=== PATIENT | male | born 1940 | race Caucasian/White ===

== ENCOUNTER → 2018-12-22 14:54 | Outpatient (CLI) | payer OTHER, SELFPAY ==
[2018-12-22 17:39] LABS: BUN Creatinine Ratio 20.8 (6-22); Blood Urea Nitrogen 27 mg/dL (9-20); Calcium 9.3 mg/dL (8.4-10.2); Carbon Dioxide 27 mmol/L (22-32); Chloride 103 mmol/L (98-107); Estimated Glomerular Filt Rate 53.5 mL/min (>60); Glucose 80 mg/dL (80-110); HEMOLYSIS < 15 (0-50); Potassium 4.9 mmol/L (3.4-5.1); Sodium 140 mmol/L (137-145)
[2018-12-22 17:51] LABS: Vitamin D 25 Hydroxy (D3) 45.6 ng/mL (30.0-100.0)
== END ==
PROVIDERS: PCP Student in an Organized Health Care Education/Training Program; Visit Provider Student in an Organized Health Care Education/Training Program
DX: E55.9 Vitamin D deficiency, unspecified (principal); N18.3 Chronic kidney disease, stage 3 (moderate)
CPT/HCPCS: 36415; 80048; 82306

== ENCOUNTER → 2020-01-21 09:08 | Outpatient (CLI) | payer OTHER, SELFPAY ==
--- NOTE | 2020-01-21 09:09 | DI.US.S_ITS ---
PROCEDURE: US PERIPH VENOUS LOW EXTREM RT INDICATIONS: UNILATERAL EDEMA TECHNIQUE: Real-time imaging, as well as color and pulse Doppler interrogation, were performed of the lower extremity deep veins from the inguinal ligament to the popliteal fossa. COMPARISON: None. FINDINGS: There is expansile clot present with minimal flow extending from the right popliteal vein through most of the superficial femoral vein (deep vein of the thigh). The common femoral vein is patent. IMPRESSION: Long segment acute right lower extremity DVT involving the popliteal vein and most of the superficial femoral vein. Dictated by: Federico Pitt M.D. on 01/21/2020 at 10:16 Approved by: Federico Pitt M.D. on 01/21/2020 at 10:21
== END ==
PROVIDERS: PCP Student in an Organized Health Care Education/Training Program; Referring Provider Student in an Organized Health Care Education/Training Program; Visit Provider Student in an Organized Health Care Education/Training Program
DX: I82.431 Acute embolism and thrombosis of right popliteal vein (principal); I82.811 Embolism and thrombosis of superficial veins of right lower extremity; R60.0 Localized edema
CPT/HCPCS: 93971

== ENCOUNTER → 2020-01-22 12:17 | Outpatient (CLI) | payer OTHER, SELFPAY ==
[2020-01-22 13:27] LABS: Alanine Aminotransferase 24 IU/L (<50); Albumin 4.2 g/dL (3.5-5.0); Albumin Globulin Ratio 1.4 (1.0-2.8); Alkaline Phosphatase 80 U/L (38-126); Aspartate Aminotransferase 25 IU/L (17-59); BUN Creatinine Ratio 17.2 (6-22); Bilirubin Total 0.4 mg/dL (0.2-1.3); Blood Urea Nitrogen 23 mg/dL (9-20); Calcium 9.4 mg/dL (8.4-10.2); Carbon Dioxide 27 mmol/L (22-32); Chloride 105 mmol/L (98-107); Estimated Glomerular Filt Rate 51.6 mL/min (>60); Globulin 3.1 g/dL (1.7-4.1); Glucose 106 mg/dL (80-110); HEMOLYSIS < 15 (0-50); Potassium 4.8 mmol/L (3.4-5.1); Sodium 139 mmol/L (137-145); Total Protein 7.3 g/dL (6.3-8.2)
== END ==
PROVIDERS: PCP Student in an Organized Health Care Education/Training Program; Referring Provider Internal Medicine; Visit Provider Internal Medicine
DX: I82.409 Acute embolism and thrombosis of unspecified deep veins of unspecified lower extremity (principal); N18.2 Chronic kidney disease, stage 2 (mild)
CPT/HCPCS: 36415; 80053

== ENCOUNTER → 2020-03-09 10:57 | Outpatient (CLI) | payer OTHER, SELFPAY ==
--- NOTE | 2020-03-09 11:02 | DI.RAD.S_ITS ---
PROCEDURE: XR RIBS LT MIN 3V W CXR1V INDICATIONS: s/p fall/trauma TECHNIQUE: 2 views of the left ribs were acquired, along with a single view chest. COMPARISON: None. FINDINGS: Surgical changes and devices: None. Bones and chest wall: A left posterolateral 11th rib fracture can be seen on one of the 3 views clearly. It is by 8 mm at the fracture margin. No suspicious bony lesions. Overlying soft tissues appear unremarkable. Lungs and pleura: No pleural effusions or pneumothorax. Lungs appear clear. Mediastinum: Mediastinal contours appear normal. Heart size is normal. IMPRESSION: A fracture is noted at what appears to be the 11th rib posterior laterally on the left, seen on one of the 3 views to be at the fracture plane by approximately 8 mm. No pneumothorax on the left. Dictated by: Guicho Torres M.D. on 03/09/2020 at 11:33 Approved by: Guicho Torres M.D. on 03/09/2020 at 11:38
== END ==
PROVIDERS: PCP Student in an Organized Health Care Education/Training Program; Referring Provider Nurse Practitioner; Visit Provider Nurse Practitioner
DX: R07.81 Pleurodynia (principal); S22.32XA Fracture of one rib, left side, initial encounter for closed fracture; I82.409 Acute embolism and thrombosis of unspecified deep veins of unspecified lower extremity; I87.2 Venous insufficiency (chronic) (peripheral); W19.XXXA Unspecified fall, initial encounter
CPT/HCPCS: 71101

== ENCOUNTER → 2020-08-24 10:43 | Outpatient (CLI) | payer OTHER, SELFPAY ==
--- NOTE | 2020-08-24 10:44 | DI.US.S_ITS ---
PROCEDURE: US PERIP VENOUS LOW EXTREM RT INDICATIONS: FOLLOW-UP DVT TECHNIQUE: Real-time imaging, as well as color and pulse Doppler interrogation, were performed of the lower extremity deep veins from the inguinal ligament to the popliteal fossa. COMPARISON: [facility], , [facility] VENOUS LOW EXTREM RT, 01/21/2020, 9:49. FINDINGS: The common femoral, femoral and popliteal veins are normally compressible, and free of intraluminal thrombus. Color and pulse Doppler demonstrate normal phasic intraluminal flow. There is normal augmentation response to distal compression maneuver. IMPRESSION: Negative for deep venous thrombosis. Dictated by: Antoine Ames M.D. on 08/24/2020 at 12:49 Approved by: Antoine Ames M.D. on 08/24/2020 at 12:50
== END ==
PROVIDERS: PCP Student in an Organized Health Care Education/Training Program; Referring Provider Student in an Organized Health Care Education/Training Program; Visit Provider Student in an Organized Health Care Education/Training Program
DX: I82.409 Acute embolism and thrombosis of unspecified deep veins of unspecified lower extremity (principal); Z79.01 Long term (current) use of anticoagulants
CPT/HCPCS: 93971

== ENCOUNTER 2022-07-20 10:37 | Emergency (ER) | payer OTHER, SELFPAY ==
[2022-07-20 10:47] VITALS: BP 150/89; PULSE 70; RESP 14; TEMP 36.5; O2SAT 99; BMI 29.5
--- NOTE | 2022-07-20 10:54 | DI.RAD.S_ITS ---
PROCEDURE: XR KNEE RT 3V INDICATIONS: fall, pain TECHNIQUE: 3 views of the knee were acquired. COMPARISON: None. FINDINGS: Bones: Osseous fragment is superior to the patella. Probable donor site at the superior patella. There is moderate displacement of this suspected fracture fragment. Small quadriceps enthesophyte. Small osteophyte at the medial tibial plateau. No dislocations. No suspicious bony lesions. Soft tissues: Small joint effusion. No suspicious soft tissue calcifications. IMPRESSION: Concern for superior patellar avulsion fracture with retraction of the quadriceps tendon. Recommend clinical correlation. Heterotopic ossification is felt to be less likely. Dictated by: Dani Ribera M.D. on 07/20/2022 at 11:50 Approved by: Dani Ribera M.D. on 07/20/2022 at 11:56
--- NOTE | 2022-07-20 10:54 | DI.RAD.S_ITS ---
PROCEDURE: XR LUMBAR SPINE 2-3V INDICATIONS: fall, pain TECHNIQUE: 3 views of the lumbar spine were acquired. COMPARISON: None. FINDINGS: Bones: 5 kyk-bkw-qxmeluq vertebrae are present. There is normal bony alignment. No vertebral body compression fractures. Multilevel loss of intervertebral disc space height, prominent osteophytes. Lower lumbar spine facet joint hypertrophy. No suspicious bony lesions. Soft tissues: Overlying bowel gas pattern is normal. No suspicious soft tissue calcifications. IMPRESSION: No acute osseous abnormality. No compression fracture. Dictated by: Dani Ribera M.D. on 07/20/2022 at 11:56 Approved by: Dani Ribera M.D. on 07/20/2022 at 11:57
--- NOTE | 2022-07-20 14:30 | ED_ITS ---
HPI - Fall <OSMAN Mariee - Last Filed: 07/20/22 15:25> General Chief Complaint: Fall Stated Complaint: fell going up steps t-1 Time Seen by Provider: 07/20/22 14:08 Source: patient Mode of arrival: Wheelchair History of Present Illness HPI Narrative: This is an 81-year-old gentleman with history of CKD who is not currently anticoagulated and takes an occasional baby aspirin who presents to the emergency department after he had a fall in his boat last night at 23:00. He states he fell backwards and injured his low back, states that his right knee has been swollen, tender midline and he states he is unable to extend his right knee but flexion is intact. States it flexion is painful over the patella, denies muscle spasms, he denies any numbness or tingling in his lower extremities., his right knee is swollen, has ecchymosis, Related Data Previous Rx's Medication Instructions Recorded hydrocodone 5 mg-acetaminophen 325 1 tab PO BID PRN pain #14 tabs 07/20/22 mg tablet methocarbamol 500 mg tablet 500 mg PO TID PRN muscle spasm #20 07/20/22 tabs Allergies Allergy/AdvReac Type Severity Reaction Status Date / Time No Known Drug Allergies Allergy Verified 07/20/22 10:53 Review of Systems <OSMAN Mariee - Last Filed: 07/20/22 15:25> Review of Systems Narrative: Review of systems is negative for acute abnormalities unless otherwise noted in HPI Patient History <OSMAN Mariee - Last Filed: 07/20/22 15:25> Medical History Chronic anticoagulation Rib pain Social History marital status: Smoking Status: Never smoker alcohol intake: current (ON OCCASION ) substance use type: does not use Smoking Status: Never smoker alcohol intake frequency: holidays/special occasions only Substance Use Type: does not use Exam <OSMAN Mariee - Last Filed: 07/20/22 15:25> Narrative Exam Narrative: Reviewed vitals signs and nursing notes. General: cooperative, comfortable, in no acute distress, well groomed HEENT: symmetrical facial expressions, moist mucous membranes Cardiovascular: regular rate and rhythm, no peripheral edema, warm extremities Respiratory: normal effort, able to speak in complete sentences, without wheezing, stridor, or abnormal breath sounds. No retractions or tachypnea. MSK: moves all extremities, neurovascularly intact, patient is unable to extend his right knee, flexion is intact, PT and DP pulses are strong, cap refills brisk to the right foot, patient has ecchymosis, supra patellar edema, his quadriceps muscle appears more superior than his left. He denies muscle spasms and does not have tenderness when squeezing the quadriceps muscle. He denies tenderness over his MCL, LCL, his varus and valgus testing is negative for increased laxity, no tenderness over his patellar tendon but mid patella and superior to the patella are the most painful along the midline to palpation. Skin: brisk capillary refill, without pallor or erythema Neuro: normal speech and cognition, A&O x3, ambulatory, clear speech Psych: mental status is grossly normal, congruent mood, normal affect, pleasant and cooperative Initial Vital Signs Initial Vital Signs: Vital Signs Temperature 97.7 F 07/20/22 10:47 Pulse Rate 70 07/20/22 10:47 Respiratory Rate 14 07/20/22 10:47 Blood Pressure 150/89 H 07/20/22 10:47 Pulse Oximetry 99 07/20/22 10:47 Oxygen Delivery Method 07/20/22 10:47 <Mariluz Licea DO - Last Filed: 08/03/22 10:57> Initial Vital Signs Initial Vital Signs: Vital Signs Temperature 97.7 F 07/20/22 10:47 Pulse Rate 70 07/20/22 10:47 Respiratory Rate 14 07/20/22 10:47 Blood Pressure 150/89 H 07/20/22 10:47 Pulse Oximetry 99 07/20/22 10:47 Oxygen Delivery Method 07/20/22 10:47 Procedures <OSMAN Mariee - Last Filed: 07/20/22 15:25> Orthopedic Splinting/Casting Injury #1: Side: right Lower Extremity Injury Location: knee Lower Extremity Immobilizer: knee immobilizer Other Orthopedic Equipment: crutches Post splinting neuro exam: intact Post splinting vascular exam: intact Placed by: Nursing Course <OSMAN Mariee - Last Filed: 07/20/22 15:25> Orders Ordered: Discontinued Medications Hydrocodone Bitart/Acetaminophen (Hydrocodone/Acet 5/325 Tablet) 1 tab PO NOW ONE Stop: 07/20/22 14:34 Last Admin: 07/20/22 15:01 Dose: 1 tab Documented By: BT Consultations Consultation #1: Consultation with Dr. Garcia regarding his Right patellar avulsion fracture with moderate displacement and concern for quadriceps tendon rupture, he recommends that patient follow-up in the clinic, knee immobilizer, weight-bearing as tolerated, crutches, pain medication, and he made note of patient's name and birthday. Vital Signs Vital signs: Vital Signs - 8 hr 07/20/22 10:47 Temperature 97.7 F Pulse Rate 70 Respiratory Rate 14 Blood Pressure 150/89 H Pulse Oximetry 99 Oxygen Delivery Method Room Air <Mariluz Licea DO - Last Filed: 08/03/22 10:57> Orders Ordered: Discontinued Medications Hydrocodone Bitart/Acetaminophen (Hydrocodone/Acet 5/325 Tablet) 1 tab PO NOW ONE Stop: 07/20/22 14:34 Last Admin: 07/20/22 15:01 Dose: 1 tab Documented By: BT Vital Signs Vital signs: Vital Signs - 8 hr 07/20/22 10:47 Temperature 97.7 F Pulse Rate 70 Respiratory Rate 14 Blood Pressure 150/89 H Pulse Oximetry 99 Oxygen Delivery Method Room Air MDM - Fall <OSMAN Mariee - Last Filed: 07/20/22 15:25> Imaging Data Extremity x-ray #1: Radiologist's Impression: PROCEDURE:? XR KNEE RT 3V ? INDICATIONS:? fall, pain ? TECHNIQUE:? 3 views of the knee were acquired.? ? COMPARISON:? None. ? FINDINGS:? ? Bones:? Osseous fragment is superior to the patella.? Probable donor site at the superior patella.? There is moderate displacement of this suspected fracture fragment.? Small quadriceps enthesophyte.? Small osteophyte at the medial tibial plateau.? No dislocations.? No suspicious bony lesions.? ? Soft tissues:? Small joint effusion.? No suspicious soft tissue calcifications.? ? IMPRESSION:? Concern for superior patellar avulsion fracture with retraction of the quadriceps tendon. ?Recommend clinical correlation.? Heterotopic ossification is felt to be less likely. ? ? Dictated by: Dani Ribera M.D. on 07/20/2022 at 11:50 ? ? Approved by: Dani Ribera M.D. on 07/20/2022 at 11:56 ? [facility] Narrative Medical decision making narrative: This is an 81-year-old gentleman who presents to the emergency department after a fall backwards into his boat last night sustaining a low back injury and right knee injury. On exam, his right knee is very swollen, with ecchymosis, he is unable to extend his right knee at all, flexion is okay but causes pain over the anterior midline knee. He is neurovascularly intact, x-ray shows a likely avulsion fracture of the superior of his patella with retracted quadriceps muscle. Patient complained of low back pain but adjacent to the paraspinal musculature. His fall was at 23:00 last night, he came into the emergency department today after not taking pain medication. He is sore over the lateral musculature of his lumbar spine. He is without weakness other than his right knee extension, denies sensation changes, hitting his head, his lumbar x-ray does not show any acute osseous abnormality or fracture. Discussion with Dr. Abernathy recommends knee immobilizer, weight-bearing as tolerated, pain medication, and for patient to follow-up at [facility] early next week. He took down the patient's information and patient was discharged with understanding of this information. He was prescribed Lortab and methocarbamol to use in addition to ibuprofen and Tylenol at home. Knee immobilizer was fitted and crutches were provided, patient was able to use without too much difficulty. He is active at baseline. Discharge Plan Departure Patient Disposition: Home Clinical Impression: Fall Avulsion of right patellar tendon Qualifiers: Encounter type: initial encounter Qualified Code(s): S86.891A - Other injury of other muscle(s) and tendon(s) at lower leg level, right leg, initial encounter Quadriceps muscle rupture Qualifiers: Encounter type: initial encounter Laterality: right Qualified Code(s): S76.111A - Strain of right quadriceps muscle, fascia and tendon, initial encounter Strain of lumbar paraspinal muscle Qualifiers: Encounter type: initial encounter Qualified Code(s): S39.012A - Strain of muscle, fascia and tendon of lower back, initial encounter Instructions: Quadriceps Strain, DI for Patella Fracture, DI for Avulsion Fracture Activity Restrictions/Additional Instructions: *You have been diagnosed with what appears to be a quadriceps muscle/tendon rupture from the top of the patella. The patella is your knee cap, and the muscle appears to be retracted higher than it is on her other side. Dr. Garcia said that you can wear a knee immobilizer and bear weight as tolerated at home, I have given you muscle relaxers and pain pills to use as needed, please call the number below and set up a follow-up appointment at [facility] in and a [place] for early next week. You can use crutches for walking, I hope that this is doable for you. Your muscles will be sore, please use ibuprofen and Tylenol in addition to these medications for your pain, your lumbar x-ray does not show fracture which is good news. Please ice this frequently and for at least 20 minutes each time for the 1st few days, this should help. *What to do: *Please continue to take your regular medications as directed. [x ] New medication prescriptions sent to your pharmacy: [ [facility] [ ] New medication written as a paper prescription [ ] No new medications given *Please follow up with your primary care provider in 2-3 days, call for an appointment. Let them know you were seen in the Emergency Department and that we asked that you be seen for follow-up. We will electronically transmit a record of today's note if your PCP is in our system *If you do not have a primary care provider please contact [phone] to establish care with one of the [facility] primary care providers. *Return to Emergency Department if you should have any new, worsening, or concerning symptoms, such as [fever greater than 101F, chills, worsening pain, persistent vomiting or other bothersome symptoms]. Prescriptions: New methocarbamol 500 mg tablet 500 mg PO TID PRN (Reason: muscle spasm) Qty: 20 0RF hydrocodone-acetaminophen 5-325 mg tablet 1 tab PO BID PRN (Reason: pain) Qty: 14 0RF Referrals: Golden Yi MD [Primary Care Provider] - Phil Garcia MD [Physician] - (Please call the office number to schedule an appt in [place] early next week. You can see any of the providers, but he is aware of you.) Visit Report Forms: Patient Portal/API <Mariluz Licea DO - Last Filed: 08/03/22 10:57> Cosign ED Attending Cosignature Attestation: I was immediately available in the department for consultation. Documentation has been reviewed.
[2022-07-20] MEDS: HYDROCODONE/ACET 5/325 TABLET 1 TAB PO (15:01)
[2022-07-20 16:04] VITALS: BP 152/79; PULSE 72; RESP 20; O2SAT 98
== END 2022-07-20 16:04 | disposition home or self-care (01) ==
PROVIDERS: Emergency Provider Nurse Practitioner Critical Care Medicine; PCP Student in an Organized Health Care Education/Training Program
DX: S76.191A Other specified injury of right quadriceps muscle, fascia and tendon, initial encounter (principal); S39.012A Strain of muscle, fascia and tendon of lower back, initial encounter; S76.112A Strain of left quadriceps muscle, fascia and tendon, initial encounter; S76.111A Strain of right quadriceps muscle, fascia and tendon, initial encounter; W10.9XXA Fall (on) (from) unspecified stairs and steps, initial encounter
CPT/HCPCS: 72100; 73562; 99283; 99284

== ENCOUNTER 2024-09-24 12:13 | Day surgery (SDC) | payer OTHER, SELFPAY ==
[2024-09-24 12:40] VITALS: BP 162/86; PULSE 84; RESP 17; TEMP 36.2; O2SAT 99
--- NOTE | 2024-09-24 13:21 | P.HP_ITS ---
History of Present Illness History of Present Illness Date Patient Seen: 09/24/24 Time Patient Seen: 13:21 Chief complaint: Dx Colonoscopy w/poss bx Narrative: Leonardo is an 83 year old man who has had an adenomatous polyp removed in the past. [facility] Medical History (Updated 09/22/24 @ 16:26 by Willem Hutton DO) Dupuytren contracture Seasonal allergies Dislocated shoulder (~1966) Fractures Chronic back pain (~1989) Ankle pain Measles (~1950) Hearing loss (~1974) History of elevated PSA Colon polyp Borderline hypertension Family history of prostate cancer Renal insufficiency Chronic anticoagulation Rib pain Surgical History (Updated 02/23/24 @ 19:09 by Tia Perdue) Anesthesia Pilonidal cyst (~1963) H/O right knee surgery (~2023) Family History (Updated 02/23/24 @ 19:10 by Tia Perdue) Father Cancer Mother Cancer Social History marital status: Smoking Status: Never smoker alcohol intake: current substance use type: does not use Meds Home Medications and Allergies Home Medications Medication Instructions Recorded Confirmed Type multivitamin combination no.56 PO 01/14/24 09/22/24 History sodium,potassium,mag sulfates 17.5 See Rx Instructions PO .COMPLEX 08/20/24 09/22/24 Rx gram-3.13 gram-1.6 gram oral soln #354 mL (Suprep Bowel Prep Kit) aspirin 81 mg tablet 40 mg PO DAILY 09/24/24 09/24/24 History Allergies Allergy/AdvReac Type Severity Reaction Status Date / Time No Known Drug Allergies Allergy Verified 09/22/24 16:01 Exam Vital Signs (past 8 hours): - 09/24/24 12:40 Temperature 97.2 F L Pulse Rate 84 Respiratory Rate 17 Blood Pressure 162/86 H Pulse Oximetry 99 Oxygen Delivery Method Room Air Oxygen Delivery Method Room Air Narrative Exam Narrative: Appears younger than stated age Assessment & Plan Assessment and plan (1) Colon polyp: Qualifiers: Colon polyp type: unspecified Colon location: unspecified part of colon Qualified Code(s): K63.5 - Polyp of colon Status: Acute Plan Colonoscopy Time-Based Coding :: [TOTAL MINUTES] spent with patient and on the chart (including review of chart, obtaining history, exam, reviewing outside data, placing orders, documenting exam and treatment plan, and counseling patient) on [DATE]. [employer] Document charge(s): No
[2024-09-24] MEDS: SODIUM CHLORIDE 0.9% 1,000 ML 84 ML IV (13:30)
--- NOTE | 2024-09-24 14:18 | P.OP.COLON_ITS ---
Operative Date/Time/Diagnoses Date of procedure: 09/24/24 Time of procedure: 14:18 Pre-op diagnosis: Colon cancer screening Post-op diagnosis: same Procedure & Clinicians Study performed: Colonoscopy Same procedure as scheduled: Yes Surgeon: Kings Greene Procedure Notes Procedure in detail: Surgeon: Kings Greene MD Anesthesia: Estela Seymour MD Procedure: The patient was brought to the endoscopy suite, placed in left lateral decubitus position. The patient was connected to monitoring devices. A time-out was performed. Sedation was administered. Once the patient was adequately sedated, a digital rectal exam was performed and was normal. The scope was then inserted and advanced to the cecum where the appendiceal orifice was identified and photographed. The scope was then slowly withdrawn over greater than 6 minutes. The mucosa was thoroughly inspected. There were scatt ered diverticula but no polyps were seen. The scope was retroflexed in the rectum. Internal hemorrhoids were noted. The scope was straightened and removed. The patient was awakened and brought to recovery. Scope withdrawal time: 6 minutes Sedation time: 15 minute EBL: 0 Findings: Internal hemorrhoids and scattered diverticulosis Post-procedure Disposition: PACU
[2024-09-24 14:22] VITALS: BP 115/78; PULSE 74; RESP 16; TEMP 36.7; O2SAT 98
[2024-09-24 14:27] VITALS: BP 108/77; PULSE 74; RESP 16; O2SAT 98
[2024-09-24 14:35] VITALS: BP 130/70; PULSE 78; RESP 16; TEMP 36.8; O2SAT 98
== END 2024-09-24 14:46 | disposition home or self-care (01) ==
PROVIDERS: PCP Family Medicine; Referring Provider Surgery; Visit Provider Surgery
PROC: 0DJD8ZZ Inspection of Lower Intestinal Tract, Via Natural or Artificial Opening Endoscopic (ICD-10-PCS; CPT 45378; principal; 2024-09-24 13:30)
DX: Z12.11 Encounter for screening for malignant neoplasm of colon (principal); Z86.0101 Personal history of adenomatous and serrated colon polyps; K64.8 Other hemorrhoids; K57.30 Diverticulosis of large intestine without perforation or abscess without bleeding
CPT/HCPCS: G0105; J2704

== ENCOUNTER → 2025-01-01 09:45 | Outpatient (CLI) | payer OTHER, SELFPAY ==
[2025-01-01 10:59] LABS: Add Manual Diff / Slide Review YES; Hematocrit 41.4 % (41-53); Hemoglobin 14.5 g/dL (13.5-17.5); Mean Corpuscular HGB Conc 34.9 % (30-36); Mean Corpuscular Hemoglobin 34.5 PG (26-34); Mean Corpuscular Volume 98.6 fL (80-100); Platelet Count 178 X10^3/uL (150-400); Red Blood Cell Count 4.19 X10^6/uL (4.5-5.9); Red Cell Distribution Width 14.9 % (11.6-14.8); White Blood Cell Count 4.5 X10^3/uL (4.5-11.0)
[2025-01-01 11:11] LABS: Neutrophils Absolute Manual 2070 /uL (3000-5900); RBC Morphology Normal Morphology; Total Cells Counted 100
[2025-01-01 11:17] LABS: Alanine Aminotransferase 33 IU/L (<50); Albumin 4.4 g/dL (3.5-5.0); Albumin Globulin Ratio 1.5 (1.0-2.8); Alkaline Phosphatase 70 U/L (38-126); Aspartate Aminotransferase 32 IU/L (17-59); BUN Creatinine Ratio 16.2 (6-22); Bilirubin Total 0.8 mg/dL (0.2-1.3); Blood Urea Nitrogen 23 mg/dL (9-20); Calcium 9.2 mg/dL (8.4-10.2); Carbon Dioxide 29 mmol/L (22-32); Chloride 104 mmol/L (98-107); Estimated Glomerular Filt Rate 49 mL/min (>60); Globulin 2.9 g/dL (1.7-4.1); Glucose 111 mg/dL (70-99); HEMOLYSIS < 15 (0-50); Sodium 140 mmol/L (137-145); Total Protein 7.3 g/dL (6.3-8.2)
[2025-01-01 11:24] LABS: Potassium 5.8 mmol/L (3.4-5.1)
[2025-01-01 11:48] LABS: Prostate Specific Antigen Scrn 7.15 ng/mL (0.1-4.0)
[2025-01-01 12:09] LABS: Vitamin B12 823 pg/mL (239-931)
== END ==
LOC: LAB 09:45
PROVIDERS: PCP Family Medicine; Referring Provider Family Medicine; Visit Provider Family Medicine
DX: Z00.00 Encounter for general adult medical examination without abnormal findings (principal); Z12.5 Encounter for screening for malignant neoplasm of prostate; Z80.42 Family history of malignant neoplasm of prostate; Z87.898 Personal history of other specified conditions
CPT/HCPCS: 36415; 80053; 82607; 84443; 85007; 85025; G0103

== ENCOUNTER → 2025-02-02 14:47 | Outpatient (CLI) | payer OTHER, SELFPAY | LOC: LAB 14:48 | PROVIDERS: PCP Family Medicine; Referring Provider Family Medicine; Visit Provider Family Medicine | DX: Z87.898 Personal history of other specified conditions (principal) | CPT/HCPCS: 36415; 84153; 84154 ==

== ENCOUNTER 2025-07-04 15:36 | Emergency (ER) | payer OTHER, SELFPAY ==
[2025-07-04] VITALS (20 sets, daily range): BP systolic 132–181; BP diastolic 74–113; PULSE 71–92; RESP 14–44; TEMP 36.3; O2SAT 89–96; BMI 31.9
--- NOTE | 2025-07-04 15:54 | EKG_ITS ---
[facility] [address] [place] [address] Test Date: 2025-07-04 Pat Name: Golden Reyes Department: Room: Gender: Male Rectangular [employer] Cooper: : 1940 Requested By: Order Number: [id number] Reading MD: Daniel Turner MD Measurements Intervals [place] Rate: 79 P: 4 [place]: 136 QRS: 23 QRSD: 78 T: 97 QT: 350 QTc: 401 Interpretive Statements Normal sinus rhythm Nonspecific ST and T wave abnormality Electronically Signed On 07-11-2025 9:02:22 PST by Daniel Turner MD
--- NOTE | 2025-07-04 15:54 | DI.RAD.S_ITS ---
PROCEDURE: XR CHEST 1V INDICATIONS: suspected sepsis TECHNIQUE: One view of the chest was acquired. COMPARISON: None. FINDINGS: Surgical changes and devices: None. Lungs and pleura: Left basilar atelectasis and or infiltrate. Mediastinum: Heart size is enlarged. Bones and chest wall: No suspicious bony lesions. Overlying soft tissues appear unremarkable. IMPRESSION: Left basilar atelectasis and or infiltrate. Cardiomegaly. Approved by: Michael Collins M.D. on 07/04/2025 at 18:06
[2025-07-04] MEDS: SODIUM CHLORIDE 0.9% 1,000 ML 1000 ML IV (16:09)
[2025-07-04 16:17] LABS: Add Manual Diff / Slide Review NO; Hematocrit 41.2 % (41-53); Hemoglobin 14.1 g/dL (13.5-17.5); Lymphocytes Absolute Auto 1500 /uL (1100-4500); Mean Corpuscular HGB Conc 34.1 % (30-36); Mean Corpuscular Hemoglobin 33.6 PG (26-34); Mean Corpuscular Volume 98.5 fL (80-100); Platelet Count 164 X10^3/uL (150-400)
[2025-07-04 16:21] LABS: INR 1.3 (0.9-1.3); Prothrombin Time 14.3 SECONDS (9.4-12.5)
[2025-07-04 16:23] LABS: PTT Partial Thromboplastin Tim 29 SECONDS (25.1-36.5)
--- NOTE | 2025-07-04 16:23 | PC.NURSE ---
Pt denies SOB. Pt laying in bed, able to carry conversation. Pt oriented. Denies SOB
[2025-07-04 16:24] LABS: Lactate (Lactic Acid) 1.3 mmol/L (0.7-2.1)
--- NOTE | 2025-07-04 16:24 | PC.NURSE ---
xray at bedside
[2025-07-04 16:26] LABS: Alanine Aminotransferase 25 IU/L (<50); Albumin 4.4 g/dL (3.5-5.0); Albumin Globulin Ratio 1.2 (1.0-2.8); Alkaline Phosphatase 69 U/L (38-126); Blood Urea Nitrogen 15 mg/dL (9-20); Calcium 8.4 mg/dL (8.4-10.2); Carbon Dioxide 23 mmol/L (22-32); Chloride 102 mmol/L (98-107); Estimated Glomerular Filt Rate > 60 mL/min (>60); Globulin 3.8 g/dL (1.7-4.1); Glucose 134 mg/dL (70-99); HEMOLYSIS < 15 (0-50); Lipase 105 U/L (23-300); Potassium 4.0 mmol/L (3.4-5.1); Sodium 135 mmol/L (137-145); Total Protein 8.2 g/dL (6.3-8.2)
[2025-07-04 16:42] LABS: Procalcitonin 0.099 ng/mL (<0.5)
--- NOTE | 2025-07-04 17:03 | PC.NURSE ---
Provider made aware of patients symptoms
--- NOTE | 2025-07-04 18:40 | DI.CT.S_ITS ---
PROCEDURE: CT HEAD/BRAIN WO CON INDICATIONS: alt MSE TECHNIQUE: Noncontrast 4.5 mm thick angled axial sections acquired from the foramen magnum to the vertex, with coronal and sagittal reformats. For radiation dose reduction, the following was used: automated exposure control, adjustment of mA and/or kV according to patient size. COMPARISON: None. FINDINGS: Image quality: Diagnostic CSF spaces: Basal cisterns are patent. Lateral ventricles are symmetric. Volume: Vascular calcifications. Periventricular white matter disease is commonly seen with chronic microangiopathy. Volume loss is present. These findings are moderate Brain: No acute hemorrhage or gross loss of franklin-white differentiation. Craniofacial structures: No significant paranasal sinus opacity. IMPRESSION: No acute intracranial pathology. If there is high concern for parenchymal pathology, consider further evaluation with MRI. Dictated by: Lee Rosen M.D. on 07/04/2025 at 19:40 Approved by: Lee Rosen M.D. on 07/04/2025 at 19:41
--- NOTE | 2025-07-04 18:40 | DI.CT.S_ITS ---
PROCEDURE: CT ANGIO HEAD AND NECK INDICATIONS: alt MSE TECHNIQUE: After the administration of intravenous contrast, 1 mm thick sections acquired from the aortic arch through the [place] of [place]. 3-dimensional zacuzsh-bmsrzbjco-jhpzrejuul (MIP) and/or volume rendering reformats were acquired of the central intracranial vasculature and neck separately. For radiation dose reduction, the following was used: automated exposure control, adjustment of mA and/or kV according to patient size. COMPARISON: None. FINDINGS: Image quality: Diagnostic HEAD ANGIOGRAPHY: Anterior circulation: ICAs: Mild calcifications ACAs: Multifocal pylm-dt-muhgivdw irregularities, particularly the left pericallosal segment. MCAs: Mild intracranial irregularities. No occlusion AComm: No aneurysm Venous sinuses: Not well assessed on this arterial phase study. No occlusive thrombus seen Posterior circulation: Dominance: Equal Vertebral arteries: Patent Basilar artery: Patent PComms: Dominant circulations to the sport internship bilaterally sport internship: Mild intracranial irregularities are overall patent NECK ANGIOGRAPHY: Aortic arch and subclavian arteries: Mildly ectatic ascending aorta at 4 cm. Arch is overall patent. Mild atherosclerotic calcifications CCAs: Patent ICA origins (by NASCET criteria): No hemodynamically significant narrowing. ICAs: Patent ECAs: Origins are patent. Vertebral arteries: Patent Soft tissues: No enlarged lymph nodes by size criteria Lung apices: No apical pneumothorax Bones: There are degenerative osseous changes. IMPRESSION: No large vessel occlusion or high-grade stenosis. Overall mild atherosclerotic disease, including intracranial arterial irregularities suggestive of intracranial atherosclerosis. If there is high concern for infarction, consider MRI Mildly ectatic ascending aorta at 4 cm. Any quantitative measurements of stenosis were performed using NASCET criteria. Dictated by: Lee Rosen M.D. on 07/04/2025 at 19:41 Approved by: Lee Rosen M.D. on 07/04/2025 at 19:46
--- NOTE | 2025-07-04 19:07 | ED_ITS ---
HPI - Altered Mental Status General Chief Complaint: Altered Mental Status Stated Complaint: disoriented, poss hallucinations, w cold Time Seen by Provider: 07/04/25 18:38 Source: patient Mode of arrival: Ambulatory History of Present Illness HPI narrative: 84-year-old male with history of days duration cough body aches, seemed confused last night with some hallucinations, slurred speech earlier today seems to be improved, episodes of blurred vision. Seems improved now, not usually on oxygen home. Denies chest pain shortness of breath. No known exposure to persons with known COVID or flu. Prior COVID vaccination noted. Not currently on any antibiotic. Not currently on blood thinner medications except for aspirin. No focal weakness to face arm or leg. No focal numbness to face arm or leg. Related Data Home Medications ?Medication ?Instructions ?Recorded ?Confirmed multivitamin combination no.56 PO 01/14/24 04/16/25 aspirin 81 mg tablet 40 mg PO DAILY 09/24/2404/02 Previous Rx's ?Medication ?Instructions ?Recorded azithromycin 250 mg tablet 250 mg PO DAILY 4 days #4 t abs 07/04/25 cefdinir 300 mg capsule 300 mg PO BID 10 days #20 ca ps 07/04/25 Allergies Allergy/AdvReac Type Severity Reaction Status Date / Time No Known Drug Allergies Allergy Verified 04/16/25 11:55 Patient History Medical History Well adult exam Dupuytren contracture Seasonal allergies Dislocated shoulder (~1966) Fractures Chronic back pain (~1989) Ankle pain Measles (~1950) Hearing loss (~1974) History of elevated PSA Colon polyp Borderline hypertension Family history of prostate cancer Renal insufficiency Chronic anticoagulation Rib pain Surgical History Anesthesia Pilonidal cyst (~1963) H/O right knee surgery (~2023) Family History Father Cancer Mother Cancer Social History marital status: alcohol intake: current substance use type: does not use alcohol intake frequency: holidays/special occasions only Exam Narrative Exam Narrative: GENERAL: Well-developed patient, in mild distress. HEAD: Atraumatic. Normocephalic. EYES: Pupils equal round and reactive. Extraocular motions intact. No scleral icterus. No injection or drainage. ENT: Nose without bleeding, purulent drainage. Throat without erythema, tonsillar hypertrophy or exudate. Airway patent. NECK: Trachea midline. Non tender CARDIOVASCULAR: Regular rate and rhythm without murmurs, gallops, or rubs. RESPIRATORY: Clear to auscultation. Breath sounds equal bilaterally. No wheezes, rales, or rhonchi. GASTROINTESTINAL: Abdomen soft, non-tender, nondistended. EXTREMITIES: No edema or joint tenderness. BACK: Nontender without deformity or crepitance. No flank tenderness. NEURO: AOx3. Motor functions grossly nonfocal. SKIN: No rash or erythema of visible areas Initial Vital Signs Initial Vital Signs: Vital Signs Temperature 97.3 F L 07/04/25 15:44 Pulse Rate 82 07/04/25 15:44 Respiratory Rate 16 07/04/25 15:44 Blood Pressure 132/80 07/04/25 15:44 Pulse Oximetry 93 07/04/25 15:44 Oxygen Delivery Method Room Air 07/04/25 15:44 Course Orders Ordered: ED Orders 07/04/25 18:40 CT angio head and neck Stat CT head/brain wo con Stat 07/04/25 19:42 Troponin I Stat 07/04/25 19:45 Respiratory Panel (Film Array) Stat 07/04/25 20:27 CT angio chest PE protocol Stat 07/04/25 20:28 CT abdomen pelvis w con Stat Discontinued Medications Albuterol/Ipratropium (Albuterol/Ipratropium 3 Ml Ampul) 3 ml INH NOW ONE Stop: 07/04/25 19:37 Last Admin: 07/04/25 19:49 Dose: 3 ml Documented By: JUSTINA Azithromycin (Azithromycin 250 Mg Tablet) 500 mg PO NOW ONE Stop: 07/04/25 19:18 Last Admin: 07/04/25 19:34 Dose: 500 mg Documented By: NAKIA Sodium Chloride (Normal Saline 0.9%) 1,000 mls @ 1,000 mls/hr IV BOLUS ONE Stop: 07/04/25 16:53 Last Infusion: 07/04/25 17:03 Dose: Infused Documented By: Admin: 07/04/25 16:09 Dose: 1,000 mls/hr Documented By: ALESSANDRO Ceftriaxone Sodium 1,000 mg/ (Sodium Chloride) 100 mls @ 200 mls/hr IV NOW ONE Stop: 07/04/25 19:18 Last Infusion: 07/04/25 21:40 Dose: Infused Documented By: Admin: 07/04/25 19:34 Dose: 200 mls/hr Documented By: NAKIA Sodium Chloride (Normal Saline 0.9%) 500 mls @ 500 mls/hr IV BOLUS ONE Stop: 07/04/25 21:27 Last Admin: 07/04/25 23:00 Dose: Not Given Documented By: NAKIA Ondansetron HCl (Ondansetron 4 Mg/2 Ml Inj) 4 mg IV NOW PRN PRN Reason: Nausea And Vomiting Ondansetron HCl (Ondansetron 4 Mg Odt) 4 mg PO NOW PRN PRN Reason: Nausea And Vomiting Vital Signs Vital signs: Vital Signs - 8 hr 07/04/25 18:00 07/04/25 18:00 07/04/25 18:30 Pulse Rate 72 Respiratory Rate 25 H Blood Pressure 161/84 H 162/90 H Pulse Oximetry 91 Oxygen Delivery Method 07/04/25 18:30 07/04/25 19:00 07/04/25 19:01 Pulse Rate 73 89 Respiratory Rate 18 44 H Blood Pressure 147/74 H Pulse Oximetry 93 93 Oxygen Delivery Method 07/04/25 19:01 07/04/25 19:30 07/04/25 19:50 Pulse Rate 92 H 80 79 Respiratory Rate 35 H 24 16 Blood Pressure Pulse Oximetry 92 89 L 96 Oxygen Delivery Method Room Air 07/04/25 20:00 07/04/25 20:30 07/04/25 21:17 Pulse Rate 80 78 86 Respiratory Rate 32 H 21 18 Blood Pressure Pulse Oximetry 92 89 L 92 Oxygen Delivery Method 07/04/25 21:30 07/04/25 22:00 07/04/25 22:30 Pulse Rate 76 77 76 Respiratory Rate 23 24 25 H Blood Pressure Pulse Oximetry 91 90 L 90 L Oxygen Delivery Method MDM - Altered Mental Status Lab Data Attestation: I reviewed the patient's lab results. Lab results narrative: White blood cell count 7900, hemoglobin 14.1, platelets adequate. Glucose 134. Normal renal function, serum CO2, potassium. Sodium 135 slight low. Liver functions normal. Troponin negative/unmeasurable x2 interval sets. D-dimer 1200 elevated. Prolactin and lactate not elevated. Respiratory panel positive for rhino virus, otherwise negative. 07/04/25 16:07 07/04/25 16:07 Labs: Lab Results 07/04/25 07/04/25 07/04/25 Range/Units 16:07 19:42 19:45 WBC 7.9 (4.5-11.0) X10^3/uL RBC 4.18 L (4.5-5.9) X10^6/uL Hgb 14.1 (13.5-17.5) g/dL Hct 41.2 (41-53) % MCV 98.5 (80-100) fL MCH 33.6 (26-34) PG MCHC 34.1 (30-36) % RDW 15.2 H (11.6-14.8) % Plt Count 164 (150-400) X10^3/uL Neut % (Auto) 60.3 (50-75) % Lymph % (Auto) 19.7 L (25-40) % [place] % (Auto) 18.8 H (3-14) % Eos % (Auto) 0.1 L (2-4) % Baso % (Auto) 1.1 (0-2) % Neut # (Auto) 4700 (8270-2638) /uL Lymph # (Auto) 1500 (1365-6939) /uL [place] # (Auto) 1500 H (0-900) /uL Eos # (Auto) 0 (0-450) /uL Baso # (Auto) 100 (0-100) /uL PT 14.3 H (9.4-12.5) SECONDS INR 1.3 (0.9-1.3) APTT 29 (25.1-36.5) SECONDS D-Dimer 1213 H (<500) ng/ml Sodium 135 L (137-145) mmol/L Potassium 4.0 (3.4-5.1) mmol/L Chloride 102 (98-107) mmol/L Carbon Dioxide 23 (22-32) mmol/L BUN 15 (9-20) mg/dL Creatinine 1.18 (0.66-1.25) mg/dL Estimated GFR > 60 (>60) mL/min BUN/Creatinine Ratio 12.7 (6-22) Glucose 134 H (70-99) mg/dL Lactate 1.3 (0.7-2.1) mmol/L Calcium 8.4 (8.4-10.2) mg/dL Magnesium 2.2 (1.6-2.3) mg/dL Total Bilirubin 0.7 (0.2-1.3) mg/dL AST 26 (17-59) IU/L ALT 25 (<50) IU/L Alkaline Phosphatase 69 (38-126) U/L Troponin I < 0.012 < 0.012 (0.01-0.034) ng/mL Total Protein 8.2 (6.3-8.2) g/dL Albumin 4.4 (3.5-5.0) g/dL Globulin 3.8 (1.7-4.1) g/dL Albumin/Globulin Ratio 1.2 (1.0-2.8) Lipase 105 (23-300) U/L Procalcitonin 0.099 (<0.5) ng/mL Chlamy pneumoniae PCR Not detected (Not Detect) Adenovirus (PCR) Not detected (Not Detect) B. pertussis DNA (PCR) Not detected (Not Detect) B.parapertussis DNA PCR Not detected (Not Detecte) Coronavirus OC43 (PCR) Not detected (Not Detect) Coronavirus HKU1 (PCR) Not detected (Not Detect) Coronavirus 229E (PCR) Not detected (Not Detect) SARS-CoV-2 (PCR) Not detected (Not Detecte) Coronavirus NL63 (PCR) Not detected (Not Detect) Human Metapneumovir PCR Not detected (Not Detect) Influenza Type A (PCR) Not detected (Not Detect) Influenza Type B (PCR) Not detected (Not Detect) M. pneumoniae (PCR) Not detected (Not Detect) Parainfluenza 1 (PCR) Not detected (Not Detect) Parainfluenza 2 (PCR) Not detected (Not Detect) Parainfluenza 3 (PCR) Not detected (Not Detect) Parainfluenza 4 (PCR) Not detected (Not Detect) RSV (PCR) Not detected (Not Detect) Entero/Rhino (PCR) Detected H (Not Detect) Urine Dip Bedside Urine Glucose Negative Bedside Urine Bilirubin - Negative Bedside Urine Ketone - Negative Urine Specific [place] 1.010 Bedside Urine Occult Blood - Negative Bedside Urine pH 6.0 Bedside Urine Protein + 30 Bedside Urine Urobilinogen - Negative Bedside Urine Nitrite - Negative Bedside Urine Leukocytes - Negative Esterase Imaging Data Chest x-ray: Radiologist's Impression: [address] [address] [address] Scan Report Signed Patient: Mago Maurice MR#: [id number] : 05/06/1986 Acct:[id number] Age/Sex: 39 / F Date of Service: 07/04/25 Loc: ED Accession Number: [id number] Procedure: CT abdomen pelvis w con Ordering Provider: Bret Albrecht MD PROCEDURE: CT ABDOMEN PELVIS W CON INDICATIONS: lower abd pain, prior hyst/ooph/ TECHNIQUE: After the administration of intravenous contrast, axial sections acquired from the lung bases to the pubic symphysis. Coronal and sagittal reformats were performed. For radiation dose reduction, the following was used: automated exposure control, adjustment of mA and/or kV according to patient size. COMPARISON: [facility], CT, CT ABDOMEN PELVIS W CON, 05/21/2025, 13:20. FINDINGS: Image quality: Diagnostic. Lower Chest: No significant findings. ABDOMEN: Liver: No solid mass. Gallbladder: No radiopaque gallstones or wall thickening. Biliary ducts: No biliary dilation. Pancreas: No ductal dilation. Spleen: Size is within normal limits. Adrenal Glands: No adrenal nodules. Kidneys and Ureters: No hydronephrosis. No solid mass. No complex renal cystic lesion which requires follow up. Stomach and Bowel: Normal colonic caliber, without significant wall thickening. Peritoneum: No abnormal intraperitoneal fluid. No free air. Ventral Wall: No significant ventral hernia. Abdominal Nodes: No retroperitoneal or mesenteric adenopathy by size criteria. Vessels: Aorta and inferior vena cava are normal in size. PELVIS: Pelvic Organs: Hysterectomy. Bladder: No bladder wall thickening, accounting for underdistention. Pelvic Nodes: No enlarged lymph nodes. Miscellaneous: No inguinal hernias are seen. Bones: No aggressive osseous abnormality. IMPRESSION: No acute CT findings in the abdomen and pelvis Approved by: Michael Collins M.D. on 07/04/2025 at 18:12 CT scan - head: Radiologist's Impression: [address] [address] [address] Scan Report Signed Patient: Golden Reyes MR#: [id number] : 1940 Acct:[id number] Age/Sex: 84 / M Date of Service: 07/04/25 Loc: ED Accession Number: [id number] Procedure: CT head/brain wo con Ordering Provider: Bret Albrecht MD PROCEDURE: CT HEAD/BRAIN WO CON INDICATIONS: alt MSE TECHNIQUE: Noncontrast 4.5 mm thick angled axial sections acquired from the foramen magnum to the vertex, with coronal and sagittal reformats. For radiation dose reduction, the following was used: automated exposure control, adjustment of mA and/or kV according to patient size. COMPARISON: None. FINDINGS: Image quality: Diagnostic CSF spaces: Basal cisterns are patent. Lateral ventricles are symmetric. Volume: Vascular calcifications. Periventricular white matter disease is commonly seen with chronic microangiopathy. Volume loss is present. These findings are moderate Brain: No acute hemorrhage or gross loss of franklin-white differentiation. Craniofacial structures: No significant paranasal sinus opacity. IMPRESSION: No acute intracranial pathology. If there is high concern for parenchymal pathology, consider further evaluation with MRI. Dictated by: Lee Rosen M.D. on 07/04/2025 at 19:40 Approved by: Lee Rosen M.D. on 07/04/2025 at 19:41 CTA - brain/neck: Radiologist's Impression: [place] [address] CT Scan Report Signed Patient: Golden Reyes MR#: [id number] : 1940 Acct:[id number] Age/Sex: 84 / M Date of Service: 07/04/25 Loc: ED Accession Number: [id number] Procedure: CT angio head and neck Ordering Provider: Bret Albrecht MD PROCEDURE: CT ANGIO HEAD AND NECK INDICATIONS: alt MSE TECHNIQUE: After the administration of intravenous contrast, 1 mm thick sections acquired from the aortic arch through the [place]. 3-dimensional qoorfvd-ogusdbntm-ocrrqwafkr (MIP) and/or volume rendering reformats were acquired of the central intracranial vasculature and neck separately. For radiation dose reduction, the following was used: automated exposure control, adjustment of mA and/or kV according to patient size. COMPARISON: None. FINDINGS: Image quality: Diagnostic HEAD ANGIOGRAPHY: Anterior circulation: ICAs: Mild calcifications ACAs: Multifocal rczy-dq-lohlmxzi irregularities, particularly the left pericallosal segment. MCAs: Mild intracranial irregularities. No occlusion AComm: No aneurysm Venous sinuses: Not well assessed on this arterial phase study. No occlusive thrombus seen Posterior circulation: Dominance: Equal Vertebral arteries: Patent Basilar artery: Patent PComms: Dominant circulations to the pharmacy resident bilaterally pharmacy resident: Mild intracranial irregularities are overall patent NECK ANGIOGRAPHY: Aortic arch and subclavian arteries: Mildly ectatic ascending aorta at 4 cm. Arch is overall patent. Mild atherosclerotic calcifications CCAs: Patent ICA origins (by NASCET criteria): No hemodynamically significant narrowing. ICAs: Patent ECAs: Origins are patent. Vertebral arteries: Patent Soft tissues: No enlarged lymph nodes by size criteria Lung apices: No apical pneumothorax Bones: There are degenerative osseous changes. IMPRESSION: No large vessel occlusion or high-grade stenosis. Overall mild atherosclerotic disease, including intracranial arterial irregularities suggestive of intracranial atherosclerosis. If there is high concern for infarction, consider MRI Mildly ectatic ascending aorta at 4 cm. Any quantitative measurements of stenosis were performed using NASCET criteria. Dictated by: Lee Rosen M.D. on 07/04/2025 at 19:41 Approved by: Lee Rosen M.D. on 07/04/2025 at 19:46 CTA chest PE protocol: Radiologist's Impression: [place] [address] CT Scan Report Signed Patient: Golden Reyes MR#: [id number] : 1940 Acct:[id number] Age/Sex: 84 / M Date of Service: 07/04/25 Loc: ED Accession Number: [id number] Procedure: CT angio chest PE protocol Ordering Provider: Bret Albrecht MD PROCEDURE: CT ANGIO CHEST PE PROTOCOL INDICATIONS: dyspnea, cough, Ddimer 1200s TECHNIQUE: After the administration of intravenous contrast, 2 mm thick sections acquired from the pulmonary apices to the posterior costophrenic angles. 3-dimensional maximum intensity projection (MIP) coronal and sagittal reformats were then acquired through the thorax. For radiation dose reduction, the following was used: automated exposure control, adjustment of mA and/or kV according to patient size. COMPARISON: None. FINDINGS: Image quality: Bfwd-yp-faxnbais motion artifact Lungs and pleura: Bibasilar reticulation and atelectasis. Focal opacities also seen in the lingula. Lingular calcified granuloma also suspected. No drainable pleural effusions. Mediastinum, heart, and esophagus: Dilated main pulmonary artery, usually due to high pulmonary pressures. No central pulmonary embolism. The distal segmental, and subsegmental arteries are poorly assessed due to motion artifact. Diffuse bronchial wall thickening. No enlarged lymph nodes by size criteria. Unremarkable CT appearance of the esophagus Borderline cardiomegaly Ascending aorta measures 4.6 cm. Chest wall and thyroid: Unremarkable Upper abdomen: Separately dictated. Bones: No acute appearing osseous abnormality. Diffuse degenerative osseous changes. IMPRESSION: No central pulmonary embolism. The distal arteries are obscured by motion. Mild multifocal infectious/inflammatory pulmonary opacities most significant the lingula. Background atelectasis and suspected reticulation at the lung bases, suspicious for mild fibrosis. Consider future imaging surveillance to assess for resolution. Dilated ascending aorta of 4.6 cm. Cardiomegaly. Other findings above. Dictated by: Lee Rosen M.D. on 07/04/2025 at 22:14 Approved by: Lee Rosen M.D. on 07/04/2025 at 22:18 CT scan - abdomen/pelvis: Radiologist's Impression: [place] [address] CT Scan Report Signed Patient: Golden Reyes MR#: [id number] : 1940 Acct:[id number] Age/Sex: 84 / M Date of Service: 07/04/25 Loc: ED Accession Number: [id number] Procedure: CT abdomen pelvis w con Ordering Provider: Bret Albrecht MD PROCEDURE: CT ABDOMEN PELVIS W CON INDICATIONS: dyspnea, do along with CTA Chest TECHNIQUE: After the administration of intravenous contrast, axial sections acquired from the lung bases to the pubic symphysis. Coronal and sagittal reformats were performed. For radiation dose reduction, the following was used: automated exposure control, adjustment of mA and/or kV according to patient size. COMPARISON: None. FINDINGS: Image quality: Diagnostic Lower chest: Lingular opacities partially seen Liver: Possible hepatic steatosis Gallbladder and biliary system: Unremarkable, nondilated Pancreas: No ductal dilation. Lect-wp-cllxmirg parenchymal atrophy. Suspect hypervascular lesion measuring 1.6 cm at the tail. Spleen: Nonenlarged Adrenals: No discrete nodules Kidneys: No solid enhancing renal mass. No hydronephrosis. Vessels and lymph nodes: The main portal vein is patent. No abdominal aortic aneurysm. No lymphadenopathy by size criteria. Bowel and peritoneum: No bowel obstruction. Colonic diverticula. Moderate rectal stool ball. No drainable abscess or ascites. Body wall: Unremarkable Pelvis: Bladder is unremarkable. Diffuse heterogeneous prostate enhancement is noted. Partially seen scrotal postsurgical changes and hydroceles Bones: Sacroiliac ankylosis. No aggressive appearing osseous abnormality. IMPRESSION: No acute abdominal pelvic abnormality. 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 Diffuse heterogeneous prostate enhancement, nonspecific. Consider PSA and possible MRI correlation if clinically indicated. Other findings above. Dictated by: Lee Rosen M.D. on 07/04/2025 at 22:18 Approved by: Lee Rosen M.D. on 07/04/2025 at 22:22 ECG Data Attestation: I personally reviewed and interpreted this ECG as follows: Interpretation: 1558, normal sinus rhythm with rate of 79, no obvious ST segment elevation, baseline artifact precordial leads noted. CO 136, QRS 78, QTC 401. MDM Narrative Medical decision making narrative: 84-year-old male with recent cough and headache, last night had confusion and some hallucinations, slight slurred speech and difficulty with words last night that seemed to improve, episodic blurred vision. Vision and speech issues resolved. Now has generalized fatigue and body aches. Seems most consistent with viral illness/infection. Afebrile, sirs screen negative. Labs sent, add lactate. EKG shows sinus rhythm, some artifact, no obvious ischemic changes. Chest x-ray shows possible left basilar infiltrate versus atelectasis. See radiology report. Blood cultures requested, IV ceftriaxone and oral azithromycin for pneumonia coverage. Respiratory panel and other labs pending. Lab data: White blood cell count 7900, hemoglobin 14.1, platelets adequate. Glucose 134. Normal renal function, serum CO2, potassium. Sodium 135 slight low. Liver functions normal. Troponin negative/unmeasurable x2 interval sets. D-dimer 1200 elevated. Procalcitonin and lactate not elevated. Respiratory panel positive for rhino virus, otherwise negative. CT head, no acute changes. See radiology report. CTA head and neck vessels. IMPRESSION: No large vessel occlusion or high- grade stenosis. Overall mild atherosclerotic disease, including intracranial arterial irregularities suggestive of intracranial atherosclerosis. If there is high concern for infarction, consider MRI. Mildly ectatic ascending aorta at 4 cm. See radiology report. Nonsustained wide complex tachycardia proximally 12 beats noted on tele. Add D- dimer. Repeat troponin negative as was initial draw. D-dimer 1200 elevated. Discussed PE protocol imaging. Willing to have further imaging. CTA chest ordered. Respiratory panel positive for rhino virus, otherwise negative. CT angiogram chest PE protocol. IMPRESSION: No central pulmonary embolism. The distal arteries are obscured by motion. Mild multifocal infectious/inflammatory pulmonary opacities most significant the lingula. Background atelectasis and suspected reticulation at the lung bases, suspicious for mild fibrosis. Consider future imaging surveillance to assess for resolution. Dilated ascending aorta of 4.6 cm. Cardiomegaly. See radiology report. CT abdomen and pelvis. IMPRESSION: No acute abdominal pelvic abnormality. Chest findings are separately dictated. 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 Diffuse heterogeneous prostate enhancement, nonspecific. Consider PSA and possible MRI correlation if clinically indicated. See radiology report. Patient we would like to go home, concurs. We will briefly consult with Cardiology regarding nonsustained wide complex tachycardia episode, in context of recent respiratory illness rhino virus and possible infiltrates. 2244, case discussed with cardiology Dr. Hudson who can see patient in office, with regard to patient's episode of nonsustained wide complex tachycardia, no specific medications for now advised. Aware patient we would like to go home. Discharged home with per patient request. Return precautions discussed. Advised cardiology follow up. Advised to take antibiotics as prescribed for suspected pneumonia. Return precautions discussed. Critical Care Time Critical Care Time Critical Care Time: Yes Total Critical Care Time: 35 Attestation: The high probability of a clinically significant, sudden or life threatening deterioration of the [cardiopulmonary, cerebrovascular, neurologic] system(s) required my full and direct attention, intervention and personal management. The aggregate critical care time was [35] minutes. This time is in addition to time spent performing reported procedures but includes the following: [x] Data Review and interpretation [x] Patient assessment and monitoring of vital signs [x] Documentation [x] Medication orders and management Discharge Plan Departure Patient Disposition: Home Clinical Impression: Pneumonia, Tachycardia, Rhinovirus infection Activity Restrictions/Additional Instructions: Recent cough and episodes of confusion and headache with blurred vision and body aches. Suspicious for viral infection. Respiratory panel test in fact was positive for rhino virus, otherwise negative for COVID and influenza and other respiratory pathogens tested. Chest x-ray was suspicious for pneumonia, antibiotics initiated. You had a nonsustained run of tachycardia of unclear cause. Prompting further workup including a CT scan of the chest that did not show any evidence for blood clots to the lungs, did show possible pneumonia patchy changes, and also possible underlying fibrosis that could be further worked up as an outpatient, also some dilatation of the ascending aorta. CT abdomen and pelvis imaging showed possible pancreatic small lesion that needs further workup as an outpatient, also prostate enlargement changes that can be further worked up as an outpatient. Copies of your CT scans were obtained going over these incidental findings. Further antibiotics as an outpatient, prescription was sent electronically to your pharmacy. Case was discussed with cardiology Dr. Hudson, who can see you in follow up regarding your episode of tachycardia, no specific treatment for now advised. CT head and CT angiogram studies of the vessels were done early on given your confusion symptoms that are resolved, possibly related to pneumonia illness symptoms, no evidence for stroke or lesions. The neurological workup as an outpatient for now if needed. Recheck in clinic this week with your regular doctor to review your pneumonia related symptoms. And help coordinate further workup for these other incidental findings. Prescriptions: New cefdinir 300 mg capsule 300 mg PO BID 10 Days Qty: 20 0RF azithromycin 250 mg tablet 250 mg PO DAILY 4 Days Qty: 4 0RF Rx Instructions: start on day 2 of therapy No Action multivitamin combination no.56 PO aspirin 81 mg Tablet 40 mg PO DAILY Rx Instructions: 1/2 tab Referrals: Patrick Hudson MD [Physician, Cardiology] Willem Hutton DO [Primary Care Provider, Family Practice] Stand Alone Forms: Patient Portal/API
[2025-07-04] MEDS: AZITHROMYCIN 250 MG TABLET 500 MG PO (19:34)
--- NOTE | 2025-07-04 19:48 | PC.NURSE ---
pt lying on stretcher with HOB elevated, awake and alert, medications given and resp swab obtained, 2nd trop drawn and sent. pt without c/o at this time, at bedside
[2025-07-04] MEDS: ALBUTEROL/IPRATROPIUM 3 ML AMPUL INH (19:49)
[2025-07-04 20:01] LABS: Magnesium 2.2 mg/dL (1.6-2.3)
[2025-07-04 20:09] LABS: Troponin I < 0.012 ng/mL (0.01-0.034)
[2025-07-04 20:23] LABS: Troponin I < 0.012 ng/mL (0.01-0.034)
--- NOTE | 2025-07-04 20:27 | DI.CT.S_ITS ---
PROCEDURE: CT ANGIO CHEST PE PROTOCOL INDICATIONS: dyspnea, cough, Ddimer 1200s TECHNIQUE: After the administration of intravenous contrast, 2 mm thick sections acquired from the pulmonary apices to the posterior costophrenic angles. 3-dimensional maximum intensity projection (MIP) coronal and sagittal reformats were then acquired through the thorax. For radiation dose reduction, the following was used: automated exposure control, adjustment of mA and/or kV according to patient size. COMPARISON: None. FINDINGS: Image quality: [id number] motion artifact Lungs and pleura: Bibasilar reticulation and atelectasis. Focal opacities also seen in the lingula. Lingular calcified granuloma also suspected. No drainable pleural effusions. Mediastinum, heart, and esophagus: Dilated main pulmonary artery, usually due to high pulmonary pressures. No central pulmonary embolism. The distal segmental, and subsegmental arteries are poorly assessed due to motion artifact. Diffuse bronchial wall thickening. No enlarged lymph nodes by size criteria. Unremarkable CT appearance of the esophagus Borderline cardiomegaly Ascending aorta measures 4.6 cm. Chest wall and thyroid: Unremarkable Upper abdomen: Separately dictated. Bones: No acute appearing osseous abnormality. Diffuse degenerative osseous changes. IMPRESSION: No central pulmonary embolism. The distal arteries are obscured by motion. Mild multifocal infectious/inflammatory pulmonary opacities most significant the lingula. Background atelectasis and suspected reticulation at the lung bases, suspicious for mild fibrosis. Consider future imaging surveillance to assess for resolution. Dilated ascending aorta of 4.6 cm. Cardiomegaly. Other findings above. Dictated by: Lee Rosen M.D. on 07/04/2025 at 22:14 Approved by: Lee Rosen M.D. on 07/04/2025 at 22:18
--- NOTE | 2025-07-04 20:28 | DI.CT.S_ITS ---
PROCEDURE: CT ABDOMEN PELVIS W CON INDICATIONS: dyspnea, do along with CTA Chest TECHNIQUE: After the administration of intravenous contrast, axial sections acquired from the lung bases to the pubic symphysis. Coronal and sagittal reformats were performed. For radiation dose reduction, the following was used: automated exposure control, adjustment of mA and/or kV according to patient size. COMPARISON: None. FINDINGS: Image quality: Diagnostic Lower chest: Lingular opacities partially seen Liver: Possible hepatic steatosis Gallbladder and biliary system: Unremarkable, nondilated Pancreas: No ductal dilation. [id number] parenchymal atrophy. Suspect hypervascular lesion measuring 1.6 cm at the tail. Spleen: Nonenlarged Adrenals: No discrete nodules Kidneys: No solid enhancing renal mass. No hydronephrosis. Vessels and lymph nodes: The main portal vein is patent. No abdominal aortic aneurysm. No lymphadenopathy by size criteria. Bowel and peritoneum: No bowel obstruction. Colonic diverticula. Moderate rectal stool ball. No drainable abscess or ascites. Body wall: Unremarkable Pelvis: Bladder is unremarkable. Diffuse heterogeneous prostate enhancement is noted. Partially seen scrotal postsurgical changes and hydroceles Bones: Sacroiliac ankylosis. No aggressive appearing osseous abnormality. IMPRESSION: No acute abdominal pelvic abnormality. 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 Diffuse heterogeneous prostate enhancement, nonspecific. Consider PSA and possible MRI correlation if clinically indicated. Other findings above. Dictated by: Lee Rosen M.D. on 07/04/2025 at 22:18 Approved by: Lee Rosen M.D. on 07/04/2025 at 22:22
[2025-07-04 20:46] LABS: Coronavirus NL 63 Not Detected (Not Detect); SARS- CoV-2 Not Detected (Not Detecte)
--- NOTE | 2025-07-04 20:50 | PC.NURSE ---
updated pt and pt's regarding waiting on resp panel results and that Dr Albrecht had ordered a CT of the chest asked if they could go home after the CT explained to pt and that, that was not normally done d/t not knowing the results, they stated they would need to talk with the Dr as they needed to go home because they had been here since [address] Albrecht informed they wanted to talk to him as they wanted to go home
== END 2025-07-04 23:02 | disposition home or self-care (01) ==
PROVIDERS: Emergency Medicine; Emergency Provider Emergency Medicine; PCP Family Medicine
DX: J18.9 Pneumonia, unspecified organism (principal); R00.0 Tachycardia, unspecified; B34.8 Other viral infections of unspecified site; R44.3 Hallucinations, unspecified; R41.0 Disorientation, unspecified; H53.8 Other visual disturbances; R06.00 Dyspnea, unspecified; R05.9 Cough, unspecified; R79.89 Other specified abnormal findings of blood chemistry
CPT/HCPCS: 36415; 70450; 70496; 70498; 71045; 71275; 74177; 80053; 81003; 83605; 83690; 83735; 84145; 84484; 85025; 85379; 85610; 85730; 87040; 87633; 93005; 96361; 96365; 96366; 99284; 99291; J0696; J7030; J7050; Q9967

== ENCOUNTER → 2025-08-19 14:54 | Outpatient (CLI) | payer OTHER, SELFPAY ==
--- NOTE | 2025-08-19 14:55 | DI.ECHO.S_ITS ---
[facility] : : [address] : : [place] : : [id number] : : Phone: [phone] Echocardiogram Report + + :Name: TANJA GEE Study Date: 08/19/2025 Height: 69 in : :Hospital ReadingLocation: Weight: 200 lb : : Gender: Male BSA: 2.1 m2 : :: 1940 Age: 84 yrs BP: 146/93 mmHg: :Reason For Study: Fatigue : :Ordering Physician: CHACHO, : :GERALDO Performed By: Emigdio Cottrell : :Referring: GERALDO FLOR : + + Interpretation Summary 1) Normal left ventricular size, wall motion, and systolic function (EF 55- 60%). 2) Mildly enlarged right ventricle with mildly reduced function. 3) There is mild aortic regurgitation. 4) No prior Echo available for comparison. Procedure: A two-dimensional transthoracic echocardiogram with color flow and Doppler was performed. The study quality was technically adequate. There is no prior echocardiogram noted for this patient. The heart rate ranged between 75-80 bpm during the study. Left Ventricle: The left ventricle is normal in size. Left ventricular wall thickness is borderline increased. Overall left ventricular systolic function is preserved. The ejection fraction is estimated to be 55-60%. Grade I diastolic dysfunction with normal left atrial pressure. Right Ventricle: The right ventricle is mildly dilated. Right ventricular systolic function is mildly reduced. Atria: The left atrial size is normal. Right atrial size is normal. There is no Doppler evidence for an interatrial shunt. Mitral Valve: The mitral valve leaflets appear to open well. There is no mitral valve stenosis. There is trace mitral regurgitation. Aortic Valve: The aortic valve is trileaflet. The aortic valve opens well. There is no aortic valve stenosis. There is mild aortic regurgitation. Tricuspid Valve: The tricuspid valve is not well visualized, but is grossly normal. There is trace tricuspid regurgitation. The right ventricular systolic pressure is estimated to be at least 29 mmHg based on an estimated right atrial pressure of 3 mm Hg. Pulmonic Valve: The pulmonic valve is not well seen, but is grossly normal. There is mild to moderate pulmonic regurgitation. Great Vessels: The aortic root is normal size. Based on patients BSA of 2.1 m2, the proximal ascending aorta with a max diameter of 4.2 cm is within normal range. The aortic arch could not be visualized. The pulmonary is not well visualized. The IVC is of normal diameter and collapses greater than 50% with a sniff. This suggests a low right atrial pressure of 3 mm Hg. Pericardium/ Pleura There is no pericardial effusion. MMode/2D Measurements & Calculations LVIDd: 4.6 cm LVOT diam: 2.2 cm LVIDs: 2.8 cm Ao root diam: 4.0 cm FS: 39.1 % asc Aorta Diam: 4.2 cm IVSd: 1.1 cm LVPWd: 1.1 cm LV medina. diameter/BSA (cm/m^2): 2.2 LV sys. diameter/BSA (cm/m^2): 1.4 LA A2 area: 18.3 cm2 RA long axis: 5.9 cm LA A4 area: 23.8 cm2 RA area: 17.4 cm2 LA length (vol): 6.5 cm RA vol: 43.6 ml LA vol: 56.7 ml RA : 21.1 ml/m2 LA vol index: 27.5 ml/m2 IVC diam: 2.0 cm RVD1 (basal): 3.6 cm RVD2 (mid): 3.3 cm TAPSE: 1.5 cm Doppler Measurements & Calculations Ao V2 max: 118.9 cm/sec LVOT Max Gonzalo: 85.9 cm/sec Ao V2 mean: 79.8 cm/sec LV V1 max P.0 mmHg Ao max P.7 mmHg LV V1 VTI: 13.4 cm Ao mean P.8 mmHg GIO(I,D): 2.7 cm2 Ao V2 VTI: 19.6 cm GIO(V,D): 2.8 cm2 sev ratio: 0.68 GIO indexed to BSA (cm^2/m^2): 1.3 AI P1/2t: 652.1 msec AI dec slope: 207.9 cm/sec2 MV E max gonzalo: 43.7 cm/sec TR max gonzalo: 255.4 cm/sec MV A max gonzalo: 53.0 cm/sec TR max P.1 mmHg MV E/A: 0.82 PA V2 max: 72.6 cm/sec Med Peak E' Gonzalo: 6.4 cm/sec PA V2 mean: 53.4 cm/sec E/E' med: 6.8 PA mean P.2 mmHg Lat Peak E' Gonzalo: 6.9 cm/sec PA pr(Accel): 49.5 mmHg E/E' lat: 6.3 E/e' average: 6.6 MV dec time: 0.18 sec SV(LVOT): 52.7 ml Reading Physician:06:45 PM
--- NOTE | 2025-08-19 14:55 | DI.MRI.S_ITS ---
PROCEDURE: MR AB PANCREATIC/MRCP PROTOCOL INDICATIONS: Incidental finding tail of pancreas rule out neuroendocrine TECHNIQUE: Coronal HASTE through the abdomen, axial 2-D FLASH in- and utp-km-adqde, and breath-hold T2 FSE with fat saturation through the biliary system and pancreas. Oblique coronal and axial thin-slice HASTE, radial thick-slab HASTE centered on the extrahepatic bile ducts. Intravenous secretin: Not requested. COMPARISON: None. FINDINGS: Image quality: Diagnostic. Gallbladder: No gallstones or wall thickening. Biliary ducts: No biliary dilation. Pancreas: There is a lesion at the tail of the pancreas measuring 1.5 centimeter. This lesion has intensity identical to the adjacent spleen on all sequences. Identical restricted diffusion characteristics are present as well. OTHER: Lung bases: Unremarkable. Liver: No solid mass. Spleen: Size is within normal limits. Adrenal Glands: No adrenal nodules. Kidneys and Ureters: No hydronephrosis. No solid mass. No complex renal cystic lesion which requires follow up. Stomach and Bowel: Normal colonic caliber, without significant wall thickening. Colonic diverticulosis without evidence of diverticulitis. Peritoneum: No abnormal intraperitoneal fluid. No free air. Ventral Wall: No hernia. Abdominal Nodes: No retroperitoneal or mesenteric adenopathy by size criteria. Vessels: Aorta and inferior vena cava are normal in size. Bones: No aggressive osseous abnormality. 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 Six-month follow-up is recommended with either CT or MRI to ensure stability. Dictated by: Nahum Moore M.D. on 08/20/2025 at 12:56 Approved by: aNhum Moore M.D. on 08/20/2025 at 13:04
== END ==
PROVIDERS: PCP Family Medicine; Referring Provider Family Medicine; Visit Provider Family Medicine
DX: K86.9 Disease of pancreas, unspecified (principal); T73.3XXA Exhaustion due to excessive exertion, initial encounter; I35.1 Nonrheumatic aortic (valve) insufficiency
CPT/HCPCS: 74183; 93306; A9579